=== PATIENT | male | born 1995 | race Caucasian/White ===

== ENCOUNTER → 2021-10-08 | Outpatient (CLI) | payer BC, OTHER ==
[~2021-10-08] MED LIST: DIFLUCAN100 MG PO; LOTRIMIN CREAM15 GM TP; MYCOSTATIN100000 UTS PO; NYSTATIN100000 UNI PO; TYLENOL 325MG325 MG PO; ZOFRAN4 MG PO
== END ==
LOC: KOH-I 08:34
DX: Z01.818 Encounter for other preprocedural examination (principal)
CPT/HCPCS: 71046